=== PATIENT | male | born 1970 | race American Indian/Alaskan Native ===

== ENCOUNTER 2018-09-04 07:45 | Emergency (ER) | payer OTHER ==
[2018-09-04 07:54] VITALS: BP 183/97
[2018-09-04] MEDS ORDERED: TORADOL IM ONE (08:26)
[2018-09-04] MEDS ORDERED: FLEXERIL PO ONE (08:26)
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
== END 2018-09-04 09:06 | disposition home or self-care (01) ==
LOC: ED 07:45
DX: M54.2 Cervicalgia (principal); M54.9 Dorsalgia, unspecified; E11.9 Type 2 diabetes mellitus without complications; Z79.899 Other long term (current) drug therapy; Z98.890 Other specified postprocedural states; V49.49XA Driver injured in collision with other motor vehicles in traffic accident, initial encounter; Y93.89 Activity, other specified; Y92.410 Unspecified street and highway as the place of occurrence of the external cause; Y99.8 Other external cause status
CPT/HCPCS: J1885

== ENCOUNTER 2018-09-10 15:12 | Emergency (ER) | payer OTHER ==
--- NOTE | 2018-09-10 15:22 | Event Note ---
ED Screening Note Date of service: 09/10/18 Time: 15:20 ED Screening Note: 47 y/o male comes in for htn. Has been out of his medication. Was on Lisiopril but it makes him cough. This initial assessment/diagnostic orders/clinical plan/treatment(s) is/are subject to change based on patients health status, clinical progression and re- assessment by fellow clinical providers in the ED. Further treatment and workup at subsequent clinical providers discretion. Patient/guardian urged not to elope from the ED as their condition may be serious if not clinically assessed and managed. Initial orders include:
[2018-09-10] MEDS ORDERED: NORVASC PO ONE (16:57)
[2018-09-10 17:34] LABS: Basophils % (Auto) 0.7 % (0.0-1.8); Eosinophils # (Auto) 0.1 K/mm3 (0.0-0.4); Eosinophils % (Auto) 2.2 % (0.0-4.3); Hematocrit 33.8 % (35.5-45.6); Hemoglobin 11.5 gm/dl (11.8-15.2); Lymphocytes # (Auto) 1.8 K/mm3 (1.2-5.4); Lymphocytes % (Auto) 31.2 % (13.4-35.0); Mean Corpuscular HGB Conc 34 % (32-34); Mean Corpuscular Volume 81 fl (84-94); Monocytes # (Auto) 0.5 K/mm3 (0.0-0.8); Monocytes % (Auto) 8.7 % (0.0-7.3); Platelet Count 311 K/mm3 (140-440); Red Blood Count 4.16 M/mm3 (3.65-5.03)
[2018-09-10 17:56] LABS: Albumin 3.8 g/dL (3.9-5); Calcium 9.5 mg/dL (8.4-10.2)
[2018-09-10] MEDS ORDERED: NACL 0.9% 1000 ML 1,000 ML IV ONE (18:14)
--- NOTE | 2018-09-10 18:19 | Emergency Department Report ---
ED General Adult HPI - General Chief complaint: High BP Stated complaint: HBP Time Seen by Provider: 09/10/18 16:29 Source: patient Mode of arrival: Ambulatory Limitations: No Limitations - History of Present Illness Initial comments: This is a 47-year-old male nontoxic, well nourished in appearance, no acute signs of distress presents to the ED for a complaint of high blood pressure. Patient stated that he has been out of his blood pressure medication for about 6 months and has never number the name. Patient denies any headache, blurred vision, chest pain, shortness of breath, back pain, urinary symptoms, fever or chills. Patient state he is asymptomatic and denies any symptoms. Denies any allergies. Severity scale (0 -10): 0 Improves with: none Worsens with: none Associated Symptoms: denies other symptoms. denies: confusion, chest pain, cough, diaphoresis, fever/chills, headaches, loss of appetite, malaise, nausea/vomiting, rash, seizure, shortness of breath, syncope, weakness Treatments Prior to Arrival: none - Related Data Previous Rx's Medication Instructions Recorded Last Taken Type Cyclobenzaprine [Flexeril 10 MG 10 mg PO QHS #15 tablet 09/04/18 Unknown Rx TAB] Ibuprofen [Motrin] 800 mg PO Q8HR #20 tablet 09/04/18 Unknown Rx amLODIPine [Norvasc] 10 mg PO DAILY #30 tab 09/10/18 Unknown Rx Allergies Allergy/AdvReac Type Severity Reaction Status Date / Time No Known Allergies Allergy Unverified 09/04/18 07:46 ED Review of Systems ROS: Stated complaint: HBP Other details as noted in HPI Constitutional: denies: chills, fever Eyes: denies: eye pain, eye discharge, vision change ENT: denies: ear pain, throat pain Respiratory: denies: cough, shortness of breath, wheezing Cardiovascular: denies: chest pain, palpitations Endocrine: no symptoms reported Gastrointestinal: denies: abdominal pain, nausea, diarrhea Genitourinary: denies: urgency, dysuria Musculoskeletal: denies: back pain, joint swelling, arthralgia Skin: denies: rash, lesions Neurological: denies: headache, weakness, paresthesias Psychiatric: denies: anxiety, depression Hematological/Lymphatic: denies: easy bleeding, easy bruising ED Past Medical Hx - Past Medical History Hx Diabetes: Yes - Surgical History Additional Surgical History: SHOULDER - Social History Smoking Status: Never Smoker - Medications Home Medications: Home Medications Medication Instructions Recorded Confirmed Last Taken Type Cyclobenzaprine [Flexeril 10 MG 10 mg PO QHS #15 tablet 09/04/18 Unknown Rx TAB] Ibuprofen [Motrin] 800 mg PO Q8HR #20 tablet 09/04/18 Unknown Rx amLODIPine [Norvasc] 10 mg PO DAILY #30 tab 09/10/18 Unknown Rx ED Physical Exam - General Limitations: No Limitations General appearance: alert, in no apparent distress - Head Head exam: Present: atraumatic, normocephalic - Neck Neck exam: Present: normal inspection, full ROM. Absent: tenderness, meningismus, lymphadenopathy - Respiratory Respiratory exam: Present: normal lung sounds bilaterally. Absent: respiratory distress, wheezes, rales, rhonchi, stridor, chest wall tenderness, accessory muscle use, decreased breath sounds, prolonged expiratory - Cardiovascular Cardiovascular Exam: Present: regular rate, normal rhythm, normal heart sounds. Absent: bradycardia, tachycardia, irregular rhythm, systolic murmur, diastolic murmur, rubs, gallop - Extremities Exam Extremities exam: Present: normal inspection, full ROM - Back Exam Back exam: Present: normal inspection, full ROM. Absent: tenderness, CVA tenderness (R), CVA tenderness (L), muscle spasm, paraspinal tenderness, vertebral tenderness, rash noted - Neurological Exam Neurological exam: Present: alert, oriented X3, normal gait - Psychiatric Psychiatric exam: Present: normal affect, normal mood - Skin Skin exam: Present: warm, dry, intact, normal color. Absent: rash ED Course Vital Signs 09/10/18 09/10/18 15:20 17:07 Temperature 97.9 F Pulse Rate 80 78 Respiratory 16 Rate Blood Pressure 194/113 172/101 O2 Sat by Pulse 100 Oximetry - Reevaluation(s) Reevaluation #1: 09/10/18 18:17 Patient is speaking in full sentences with no signs of distress noted. - Consultations Consultation #1: 09/10/18 18:17 Patient has been consulted with Dr. Booth about patient history, physical exam, and labs and patient to be given 1L normal saline and discharged with follow-up. ED Medical Decision Making - Lab Data Result diagrams: 09/10/18 17:18 09/10/18 17:18 - Medical Decision Making This is a 47-year-old male who presents with acute kidney injury as well as hypertensive crisis. Patient is stable and was, by me. I did consult with Dr. Booth and agrees to the ED plan of care. I did give patient a dose of Norvasc in the ER. Patient was educated and instructed of kidney injury and uncontrolled hypertension but patient that he has to leave. Patient stated he will follow up with a primary care doctor. Again I instructed to the patient that this can be very serious. Kidneys are worsen but stated he wanted to sign out AGAINST MEDICAL ADVICE. I will discharge patient with Norvasc. Patient was instructed to Follow-up with a primary care doctor in DAVID days or if symptoms worsen and continue return to emergency room as soon as possible. At time of discharge, the patient does not seem toxic or ill in appearance. No acute signs of distress noted. Patient agrees to discharge treatment plan of care. No further questions noted by the patient. Critical care attestation.: If time is entered above; I have spent that time in minutes in the direct care of this critically ill patient, excluding procedure time. ED Disposition Clinical Impression: Acute kidney injury, Hypertensive crisis Disposition: [id number] LEFT AGAINST MED ADVICE Is pt being admited?: No Does the pt Need Aspirin: No Condition: Undetermined Instructions: Hypertension (ED), Low Sodium Diet (ED) Additional Instructions: Follow-up with a primary care doctor in DAVID days or if symptoms worsen and continue return to emergency room as soon as possible. Keep daily diary of your blood pressure and presented to primary care doctor. You are signing against medical advice. Your symptoms and signs can be very critical and crucial if not full assessed and treated. This could cause to serious conditions, complications, and/or . Prescriptions: amLODIPine [Norvasc] 10 mg PO DAILY #30 tab Referrals: NIGEL RINCON MD [Primary Care Provider] - 3-5 Days [facility] [Outside] - 3-5 Days PRIMARY MD SARAH [Referring] - TUCKER PEDRAZA MD [Staff Physician] - [facility] [Outside] - [facility] Forms: Work/School Release Form(ED), AMA Form
[2018-09-10 18:39] VITALS: BP 224/123
== END 2018-09-10 18:39 | disposition left against medical advice (07) ==
LOC: ED 15:12
DX: I16.9 Hypertensive crisis, unspecified (principal); N17.9 Acute kidney failure, unspecified; E11.9 Type 2 diabetes mellitus without complications; Z79.899 Other long term (current) drug therapy
CPT/HCPCS: 36415; 80053; 85025